=== PATIENT | female | born 1970 | race Caucasian/White ===

== ENCOUNTER 2017-09-15 07:19 | Observation (INO) | payer OTHER ==
[~2017-09-15 07:19] MED LIST: Buffered Lidocaine 0.9% SYRIN* 5 ML/SYR SYRINGE INTRADERM ONE; Dexamethasone IV* 4 MG/ML 1 ML (4 MG) IV SLOW PU ONE; Famotidine IV* 10 MG/ML 2 ML (20 mg) IV ONE
[2017-09-15] MEDS ORDERED: Dexamethasone IV* 4 MG/ML 1 ML (4 MG) ONE (07:22)
[2017-09-15] MEDS ORDERED: Famotidine IV* 10 MG/ML 2 ML (20 mg) ONE (07:22)
[2017-09-15] MEDS ORDERED: ceFOXitin 2 GM IVPREMIX* 2 GM/50 ML BAG ONE (07:23)
[2017-09-15] MEDS ORDERED: Bupivacaine 0.25% SDV* 30 ML ONE ×2 (08:09→22:50)
[2017-09-15 08:37] LABS: Hematocrit 33 % (35-47); Hemoglobin 10.7 g/dl (12.0-16.0); Mean Corpuscular HGB Conc 33 g/dl (31-36); Mean Corpuscular Hemoglobin 27 pg (27-31); Mean Corpuscular Volume 82 fL (80-97); Mean Platelet Volume 10 um3 (7.4-10.4); Platelet Count 217 10^3/ul (150-450); Red Cell Distribution Width 15 % (10.5-15); White Blood Count 6.3 10^3/ul (3.5-10.8)
[2017-09-15] MEDS ORDERED: Atracurium* 10 MG/ML 10 ML VIAL ONE (08:37)
[2017-09-15] MEDS ORDERED: fentaNYL* 50 MCG/ML 5 ML VIAL (250 MCG VIAL) ONE (08:37)
[2017-09-15] MEDS ORDERED: Midazolam* 1 MG/ML 10 ML VIAL (10 MG) ONE (08:37)
[2017-09-15] MEDS ORDERED: EPHEDrine (Pressors)* 50 MG/ML VIAL ONE ×2 (09:15→23:25)
[2017-09-15] MEDS ORDERED: Glycopyrrolate IV* 0.2 MG/ML 1 ML VIAL ONE (09:19)
[2017-09-15] MEDS ORDERED: Ondansetron INJ* 2 MG/ML VIAL ONE ×2 (09:19→23:57)
[2017-09-15] MEDS ORDERED: Ketorolac INJ* 30 MG/ML 1 ML VIAL ONE (09:19)
[2017-09-15] MEDS ORDERED: Propofol* 10 MG/ML 20 ML BTL IV PUSH ONE (09:19)
[2017-09-15] MEDS ORDERED: oxyCODONE/Acetamin 5/325 MG* TAB PO PRN ×3 (09:36→11:43)
[2017-09-15] MEDS ORDERED: DiMENhydriNATE IV* 50 MG/ML VIAL IV PUSH PRN ×2 (09:36→23:57)
[2017-09-15] MEDS ORDERED: HYDROmorphone INJ* 1 MG/ML CARPUJECT SYRINGE IV PRN (09:36)
[2017-09-15] MEDS ORDERED: Ondansetron INJ* 2 MG/ML VIAL IV PRN ×2 (09:36→11:47)
[2017-09-15] MEDS ORDERED: fentaNYL* 50 MCG/ML 2 ML VIAL (100 MCG VIAL) IV PRN ×2 (09:36→23:57)
[2017-09-15] MEDS ORDERED: Naloxone* 0.4 MG/ML 1 ML VIAL IV PRN ×2 (09:36→23:57)
[2017-09-15] MEDS ORDERED: Scopolamine 1.5 mg* PATCH ONE (09:37)
[2017-09-15] MEDS ORDERED: Simethicone TAB* 80 MG TAB.CHEW PO PRN (11:43)
[2017-09-15] MEDS ORDERED: fentaNYL* 50 MCG/ML 2 ML VIAL (100 MCG VIAL) ONE ×3 (12:13→23:39)
[2017-09-15] MEDS ORDERED: oxyCODONE/Acetamin 5/325 MG* TAB ONE (12:13)
[2017-09-15] MEDS: Ketorolac INJ* 30 MG/ML 1 ML VIAL IV PUSH PRN (15:44)
[2017-09-15 20:45] LABS: ABS Basophils 0 10^3/ul (0-0.2); ABS Eosinophils 0 10^3/ul (0-0.6); ABS Lymphocytes 0.6 10^3/ul (1.0-4.8); ABS Monocytes 0.4 10^3/ul (0-0.8); ABS Neutrophils 11.7 10^3/ul (1.5-7.7); ABS Nucleated RBC 0 10^3/ul; Eosinophil % 0 % (0-6); Hematocrit 21 % (35-47); Hemoglobin 6.9 g/dl (12.0-16.0); Lymphocyte % 4.6 % (25-47); Mean Corpuscular HGB Conc 33 g/dl (31-36); Mean Corpuscular Hemoglobin 27 pg (27-31); Mean Corpuscular Volume 82 fL (80-97); Mean Platelet Volume 9 um3 (7.4-10.4); Nucleated Red Blood Cells % 0; Platelet Count 197 10^3/ul (150-450); Red Blood Count 2.55 10^6/ul (4.0-5.4); Red Cell Distribution Width 14 % (10.5-15); White Blood Count 12.8 10^3/ul (3.5-10.8)
[2017-09-15 20:59] LABS: EGFR Non-African American 87.6 (>60)
[2017-09-15 21:49] LABS: INR 1.14 (0.77-1.02)
[2017-09-15] MEDS ORDERED: Lidocaine 2% PF * 5 ML VIAL ONE (22:09)
[2017-09-15] MEDS ORDERED: Etomidate* 2 MG/ML 10 ML VIAL ONE (22:09)
[2017-09-15] MEDS ORDERED: Succinylcholine* 20 MG/ML 10 ML VIAL ONE (22:09)
[2017-09-15] MEDS ORDERED: Sodium Citrate/Citric Acid* 15 ML UDC PO ONE (22:19)
--- NOTE | 2017-09-15 22:33 | PN ---
Progress Note - Progress Note Date of Service: 09/15/17 Note: Pt now about 11 hrs postop s/p laparoscopic supracervical hysterectomy/bilat salpingectomy. I was contacted a couple times earlier in the day when pt had episodes of hypotension, nausea, and pallor. The pt would then recover and feel much better. Considering there was no tachycardia and she had normal urine output, this was initially considered to be related to the recent narcotics and anesthesia. However, when she had another episode shortly after 1930, I called and ordered a CBC and CMP. Most notable finding was Hct that had decreased from 33 to 21. Na also quite low. Creatinine about 0.7. I confirmed that blood was not drawn on her IV arm. At the bedside, pt's current BP is 120/62, with HR 70s. Urine in [place] is clear and dilute. Pt resting and speaking clearly. Lips and nails are very pale, although skin color is only mildly pale. Abdomen soft, with old mild tenderness. No rebound. The pt is certainly not showing typical signs of postoperative hemorrhage (e.g. abd pain, decreased UOP, tachycardia), but with the continued episodes of nausea and hypotension with a Hct of 21, I have to assume she has had bleeding from the surgical site that started after we completed the case. I recommend a diagnostic laparoscopy tonight to evaluate the pelvis, likely evacuate any blood, and close any bleeding sites. Pt and agree. She understands she still has the same risks as with the prior surgery including hemorrhage, infection, organ injury, DVT, and anesthesia complications. She also understands we will likely give her a blood transfusion during the surgery. Consent signed.
[2017-09-15] MEDS ORDERED: Sodium Citrate/Citric Acid* 15 ML UDC ONE (22:41)
[2017-09-15] MEDS ORDERED: Midazolam* 1 MG/ML 2 ML VIAL (2 MG) ONE (22:43)
[2017-09-15 22:44] LABS: EGFR Non-African American 90.5 (>60)
[2017-09-15] MEDS ORDERED: Morphine INJ* 2 MG/ML 1 ML CARPUJECT IV PRN (23:57)
[2017-09-15] MEDS ORDERED: oxyCODONE TAB* 5 MG TAB PO PRN (23:57)
[2017-09-15] MEDS ORDERED: Acetaminophen IV 1GM/100ML * 1,000 MG/100 ML VIAL IVPB ONE (23:57)
[2017-09-15] MEDS ORDERED: PROCHLORPERAZINE INJ 5 MG/ML 2 ML VIAL IV PRN (23:57)
[2017-09-16] MEDS: Ketorolac INJ* 30 MG/ML 1 ML VIAL IV PUSH PRN ×2 (04:05→11:35)
[2017-09-16 06:46] LABS: ABS Basophils 0 10^3/ul (0-0.2); ABS Eosinophils 0 10^3/ul (0-0.6); ABS Lymphocytes 1.3 10^3/ul (1.0-4.8); ABS Monocytes 1.5 10^3/ul (0-0.8); ABS Neutrophils 9.4 10^3/ul (1.5-7.7); ABS Nucleated RBC 0 10^3/ul; Eosinophil % 0 % (0-6); Hematocrit 22 % (35-47); Hemoglobin 7.4 g/dl (12.0-16.0); Lymphocyte % 10.6 % (25-47); Mean Corpuscular HGB Conc 33 g/dl (31-36); Mean Corpuscular Hemoglobin 27 pg (27-31); Mean Corpuscular Volume 82 fL (80-97); Mean Platelet Volume 9 um3 (7.4-10.4); Nucleated Red Blood Cells % 0; Platelet Count 169 10^3/ul (150-450); Red Blood Count 2.72 10^6/ul (4.0-5.4); Red Cell Distribution Width 14 % (10.5-15); White Blood Count 12.2 10^3/ul (3.5-10.8)
[2017-09-16 06:59] LABS: EGFR Non-African American 77.6 (>60)
--- NOTE | 2017-09-16 13:02 | OP ---
DATE OF OPERATION: 09/15/17 - ROOM #350 DATE OF : 74 SURGEON: Maeve Grimaldo MD EMAIL MARKETING SPECIALIST: Bubba Linares MD ANESTHESIOLOGIST: Fabio Reis MD ANESTHESIA: General endotracheal. PRE-OP DIAGNOSES: Menorrhagia and fibroid uterus. POST-OP DIAGNOSES: Menorrhagia and fibroid uterus. OPERATIVE PROCEDURE: Laparoscopic supracervical hysterectomy and bilateral salpingectomy. INDICATIONS: This patient is a 47-year-old 1, para 0, who has been followed in the office for the last few years with menorrhagia. The patient underwent a hysteroscopic myomectomy in the recent past; however, the submucosal fibroid grew back very quickly. The patient decided to proceed with a hysterectomy. We discussed her various options and she decided to proceed with a laparoscopic supracervical hysterectomy and bilateral salpingectomy. Consent was signed. ESTIMATED BLOOD LOSS: 50 cc. URINE OUTPUT: 400 cc. IV FLUIDS: 1800 cc lactated Ringer's. MATERIALS TO LAB: Uterus without cervix and bilateral fallopian tubes. FINDINGS: Moderately enlarged and very irregular uterus with fibroids. Bilateral fallopian tubes and ovaries appeared normal. There was some mild adhesive disease in the left adnexa consistent with several sites of endometriosis, which were also visualized in the pelvis. The appendix appeared normal. Anterior and posterior cul-de-sacs were normal other than a small amount of endometriosis. COMPLICATIONS: None. DESCRIPTION OF PROCEDURE: The risks, benefits, and alternatives were described to the patient and informed consent was obtained. The patient was taken to the operating room with IV running, where general anesthesia was induced and found to be adequate. The patient was prepped and draped in the normal sterile fashion in the high lithotomy position in [facility]. A time-out was performed. A [place] catheter was placed. A bivalved speculum was placed in the vagina. A single-tooth tenaculum was placed on the anterior cervix for traction. The uterus was sounded to about 8 to 9 cm. An Optiview uterine manipulator was then placed through the cervix and into the uterine cavity without difficulty. Once the balloon was filled, the tenaculum was removed and the speculum was also removed from the vagina. The patient was then returned to the low lithotomy position and gloves were changed. 0.25% Marcaine was then injected into the umbilicus and in the subcutaneous tissues about 3-cm below the umbilicus. An approximately 3- to 4-cm incision was made in the midline in a vertical fashion starting at the base of the umbilicus and extending caudal. The subcutaneous tissue was gently dissected to the side and the fascia was grasped with a Lucinda clamp. Once 2 Kochers were on the fascia, it was incised using the knife. The fascial incision was extended superiorly and inferiorly. The peritoneum was then entered bluntly and the peritoneal opening was extended bluntly as well. At that time, an Mason retractor was placed into the peritoneal cavity without difficulty and this was tightened down against the skin. A GelPOINT Single Site System was then attached to the Mason retractor and the abdomen was insufflated with carbon dioxide gas to a maximum pressure of 15 mmHg. The patient was placed in the Trendelenburg position. Using the uterine manipulator and a grasper to sweep the bowel out of the pelvis, the pelvic organs were carefully inspected with the findings noted above. At that time, the right fallopian tube was elevated and the connection to the ovary was grasped with the LigaSure, coagulated, and transected. The remainder of the mesosalpinx was then also taken down using the LigaSure and incised without difficulty. Care was taken to avoid injury to the IP ligament. The right fallopian tube was then amputated near the cornua and removed through the laparoscopic port. The uteroovarian ligament was also coagulated and transected with the LigaSure. The round ligaments were noted to be extremely low on the uterus. The right round ligament was identified and again coagulated and transected using the LigaSure. The broad ligament was then opened with some blunt dissection. A bladder flap was created across the anterior lower uterus. The bladder was noted to be well away from the operative site. Both ureters were also visualized and noted to be well away from the operative dissection. The right uterine vessels were then dissected, coagulated, and transected using the LigaSure. Of note, the vessels on the right side had an abnormal anatomy due to significant deviation and rotation of the lower uterus likely from the fibroids and possibly from the endometriosis. The same dissections were then performed on the patient's left side with the fallopian tube handed off. The uterine vessels were taken down in a similar fashion again with good hemostasis. The SupraLoop was then prepared and placed through one of the ports. The loop was wrapped around the upper cervix and tightened down. A 30- degree laparoscope was used to carefully inspect the location of the SupraLoop ensuring that there were no additional structures or bowel near the cauterization site. The manipulator was then removed from the uterus. The SupraLoop was activated with 100 pure-cut and the uterus was successfully amputated from the cervix. There was a small amount of bleeding noted from the cervix after the amputation had been performed. This was when the somewhat unusual blood vessel locations were identified. The LigaSure was easily used to grasp and coagulate these blood vessels with good hemostasis present. The uterus was then grasped with a 5-mm laparoscopic tenaculum. The GelPOINT was then removed. A specimen bag was then placed through the retractor site and the uterus was successfully placed inside the bag. Once this was in place, the edges of the bag were lifted up through the incision and the uterus was easily visualized at the surface. The uterus was then clamped with a Rian thyroid clamp and the uterus was then morcellated manually using a scalpel. The entire uterus was removed in one long segment successfully. The bag was then removed. The abdomen was then re- insufflated and the pelvis was reinspected again with excellent hemostasis present. Irrigation was performed and the saline was removed. At that time, the procedure was discontinued. The GelPOINT and retractor were removed. The fascia was grasped without difficulty and reapproximated using 0 Vicryl in a running fashion. The subcutaneous tissues were made hemostatic using a Bovie and the skin was then reapproximated using 4- 0 Monocryl and subcuticular stitch. The incision was then overlaid with DermaFlex skin adhesive. The patient was then returned to the supine position and allowed to awaken. The patient tolerated the procedure well. Sponge, lap, and needle counts were correct x2. [id number]/[facility] #: [id number] [facility] CENTERMirian
[2017-09-16 14:31] VITALS: BP 100/48
--- NOTE | 2017-09-17 03:12 | OP ---
DATE OF OPERATION: 09/15/17 -ROOM #350 DATE OF : 74 SURGEON: Maeve Grimaldo MD EDITOR SCHOOL PHOTOGRAPH: Dr. Strange. ANESTHESIOLOGIST: Dr. Elder. ANESTHESIA: General endotracheal. PRE-OP DIAGNOSIS: Day of operation with findings suspicious for intra- abdominal bleeding. POST-OP DIAGNOSIS: Hemoperitoneum with bleeding vessel from operative site. OPERATIVE PROCEDURE: Laparoscopic evacuation of peritoneum and cauterization of bleeding vessel. ESTIMATED BLOOD LOSS: 700 cc. URINE OUTPUT: 500 cc. IV FLUIDS: 1100 cc lactated Ringer's, 700 cc normal saline, and 1 unit of packed red blood cells. MATERIALS TO LAB: None. INDICATIONS: This patient was a 47-year-old 1, para 0, who underwent a laparoscopic supracervical hysterectomy and bilateral salpingectomy earlier in the day. The patient's procedure was uncomplicated and had 50 cc estimated blood loss. The patient had an unremarkable recovery in the PACU and was transferred to the [facility]es for recovery. A few hours after surgery, the patient had an episode of hypotension, became pale and has had a significant wave of nausea with emesis. After several minutes, the patient's blood pressure improved and she started to feel better again; however, this seemed to occur a few more times over the next few hours. When this did not seem to be resolving , a CBC and CMP were obtained for initial evaluation of possible postoperative complications. Creatinine returned normal. Sodium was low, but hematocrit had decreased from 33 to 21. On examination, the patient did appear pale, but her nausea had resolved. Her abdomen was soft and she was having minimal abdominal pain. In addition throughout the postoperative course, her heart rate had remained in the 70s. Her urine output was also noted to be very clear and dilute and she was having good output. Despite this, the patient's significant decrease in blood count and paleness seem to point to an intraperitoneal bleed. Considering this, I recommended proceeding with laparoscopic evaluation and the patient and her agreed. She is extensively counseled regarding the surgery and consent was signed. FINDINGS: Significant amount of blood throughout the abdomen and pelvis. This was estimated at about 700 cc. The bleeding was clearly coming from one tiny approximately 1 mm blood vessel that had opened on the cervical stump that was slowly actively bleeding. This was cauterized without difficulty and there was then excellent hemostasis. COMPLICATIONS: None. DESCRIPTION OF PROCEDURE: The risks, benefits, and alternatives were described to the patient and informed consent was obtained. The patient was taken to the operating room with IV running, where general anesthesia was induced and found to be adequate. The patient was prepped and draped in the normal sterile fashion in the supine position. A time-out was performed. A 0.25% Marcaine was injected just below the umbilicus into the patient's prior surgical site. Penetrating towel clamps were then placed on either side of the umbilicus to elevate the skin and a 5-mm incision was made with a scalpel. The 5-mm bladeless trocar was then inserted through this incision and into the peritoneal cavity without difficulty under direct visualization with the scope. The abdomen was then insufflated with carbon dioxide gas to a maximum pressure of 15 mmHg. The towel clamps were then removed from the skin. Upon entry into the abdomen, there was a significant amount of blood and clot immediately visualized throughout the bowel and omentum. A 0.25% Marcaine was then injected in the left lower quadrant a few centimeters below the level of the umbilicus. A 12-mm incision was then made with the scalpel and a bladeless 12-mm trocar was placed into the peritoneal cavity without difficulty. A 5 and 10-mm suction irrigators were then used to suction all the intra-abdominal blood that could be found. Throughout the procedure, this was found in both sides of the abdomen throughout the pelvis and up around the liver. Of note, the patient's liver did appear to be dusky during this procedure, as well as during the earlier one. The patient was placed in the Trendelenburg position, so the bowel could be swept out of the pelvis and moderate amount of blood clot was then removed from the anterior and posterior cul-de-sacs. The cervix stump was then visualized and noted to have a small amount of bright red blood on it. Once this was thoroughly cleaned with the suction cartridge gauger and approximately 1 mm blood vessel coming from the cervical stump on the right side was noted to have some slow active bleeding. Kleppinger bipolar device was then prepared. The blood vessel was then grasped and cauterized at two sides using the bipolar device. At that time, there was excellent hemostasis present. The pelvis and abdomen were copiously irrigated with saline and as much as possible was evacuated. At that time, the patient was returned to a flat position. The 12-mm trocar was removed and the fascia was reapproximated using a 0-Vicryl interrupted suture. The gas was then allowed to escape from the abdomen. The 5-mm umbilical trocar was then removed. Both sides were then reapproximated using 4-0 Monocryl in a subcuticular stitch. DermaFlex skin adhesive was then replaced on the umbilical incision site and also placed on the left lower quadrant incision as well. The patient was then allowed to awaken. The patient tolerated the procedure well. She received one unit of packed red blood cells during the procedure. Sponge, lap, and needle counts were correct x2. [id number]/[facility] #: [id number] MTDD
== END 2017-09-16 15:00 | disposition home or self-care (01) ==
LOC: OR 07:19 → SSU 11:42
PROVIDERS: ADMIT Obstetrics & Gynecology; ATTEND Obstetrics & Gynecology
PROC: 0UT94ZL Resection of Uterus, Supracervical, Percutaneous Endoscopic Approach (ICD-10-PCS; 2017-09-15)
PROC: 0UT74ZZ Resection of Bilateral Fallopian Tubes, Percutaneous Endoscopic Approach (ICD-10-PCS; 2017-09-15)
PROC: 0W3R3ZZ Control Bleeding in Genitourinary Tract, Percutaneous Approach (ICD-10-PCS; 2017-09-15)
PROC: 30230N1 Transfusion of Nonautologous Red Blood Cells into Peripheral Vein, Open Approach (ICD-10-PCS; principal; 2017-09-15 08:45)
DX: D25.9 Leiomyoma of uterus, unspecified (principal); N92.0 Excessive and frequent menstruation with regular cycle; N99.820 Postprocedural hemorrhage of a genitourinary system organ or structure following a genitourinary system procedure
CPT/HCPCS: 36415; 80048; 80053; 81025; 85025; 85027; 85384; 85610; 85730; 86850; 86900; 86901; 86922; 88307; 94760; 96374; 96375; A9270-GY; G0378; J0330; J0694; J1100; J1885; J2250; J2405; J2704; J3010; P9040

== ENCOUNTER 2018-12-05 17:53 | Emergency (ER) | payer OTHER ==
[2018-12-05 19:53] LABS: Urine Appearance Clear; Urine Bilirubin Negative (Negative); Urine Blood Negative (Negative); Urine Color Yellow; Urine Glucose Negative (Negative); Urine Ketones Negative (Negative); Urine Nitrite Negative (Negative); Urine Protein Negative (Negative); Urine Specific Gravity 1.017 (1.010-1.030); Urine Urobilinogen Negative (Negative)
[2018-12-05] MEDS ORDERED: Ketorolac INJ* 60 MG/2 ML VIAL IM ONE (20:50)
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
[2018-12-05] MEDS ORDERED: Ondansetron ODT TAB* 4 MG PO ONE ×2 (21:31→22:25)
[2018-12-05 21:36] LABS: ABS Basophils 0.1 10^3/ul (0-0.2); ABS Eosinophils 0 10^3/ul (0-0.6); ABS Lymphocytes 0.9 10^3/ul (1.0-4.8); ABS Monocytes 0.4 10^3/ul (0-0.8); ABS Neutrophils 11.1 10^3/ul (1.5-7.7); ABS Nucleated RBC 0 10^3/ul; Eosinophil % 0.1 %; Hematocrit 40 % (33-41); Hemoglobin 13.5 g/dL (12.0-16.0); Lymphocyte % 7.5 %; Mean Corpuscular HGB Conc 34 g/dL (31-36); Mean Corpuscular Hemoglobin 32 pg (27-31); Mean Corpuscular Volume 92 fL (80-97); Mean Platelet Volume 9.5 fL (7.4-10.4); Nucleated Red Blood Cells % 0; Platelet Count 209 10^3/uL (150-450); Red Blood Count 4.29 10^6 /uL (3.70-4.87); Red Cell Distribution Width 12 % (10.5-15); White Blood Count 12.5 10^3/uL (3.5-10.8)
[2018-12-05] MEDS ORDERED: LORazepam TAB(*) 1 MG PO ONE (21:50)
[2018-12-05 21:54] LABS: Albumin 4.5 g/dL (3.2-5.2); Albumin/Globulin Ratio 1.8 (1-3); BUN/Creatinine Ratio 26.3 (8-20); C Reactive Protein 1.11 mg/L (<8.01); Calcium 9.6 mg/dL (8.6-10.3); EGFR African American 99.1 (>60); EGFR Non-African American 81.9 (>60); Globulin 2.5 g/dL (2-4); Potassium 3.6 mmol/L (3.5-5.0); Total Bilirubin 0.7 mg/dL (0.2-1.0)
[2018-12-05 22:00] LABS: HCG Pregnancy 2.04 mIU/mL
[2018-12-05] MEDS ORDERED: Magnesium CITRATE* 300 ML BTL PO ONE (22:25)
[2018-12-05 23:18] VITALS: BP 144/85
== END 2018-12-05 23:19 | disposition home or self-care (01) ==
LOC: ED 17:53
DX: R10.32 Left lower quadrant pain (principal); K59.00 Constipation, unspecified; R11.2 Nausea with vomiting, unspecified; Z90.710 Acquired absence of both cervix and uterus
CPT/HCPCS: 36415; 74176; 80053; 81003; 83690; 84702; 85025; 85379; 86140; 96372; 99283; A9270-GY; J1885